=== PATIENT | female | born 1950 | race Caucasian/White ===

== ENCOUNTER 2020-12-06 05:43 | Day surgery (SDC) | payer MEDICARE ==
[~2020-12-06] VITALS: Ht 167.6 cm; Wt 67.3 kg
[~2020-12-06 05:43] MED LIST: APIX5TAB PO; ASPI-963 PO/NG; ATOR-2 PO; DIGO125T85 PO; DILT180C53 PO
[2020-12-06] MEDS ORDERED: FLEC50TA25 PO (06:21)
[2020-12-06 06:26] VITALS: BP 119/75
[2020-12-06 06:57] LABS: ANION GAP 5 mmol/L (5-15); CALCIUM 8.6 mg/dL (8.5-10.1); CHLORIDE 109 mmol/L (98-107); CREATININE 0.83 mg/dL (0.55-1.02)
[2020-12-06] MEDS ORDERED: PROPOFOL 10 MG/ML, 20ML ONE (07:28)
[2020-12-06] MEDS ORDERED: FLEC100T PO (07:51)
== END 2020-12-06 08:57 | disposition home or self-care (01) ==
LOC: CACL 05:43
PROVIDERS: ATTEND Internal Medicine Clinical Cardiac Electrophysiology
DX: I48.19 Other persistent atrial fibrillation (principal); E78.5 Hyperlipidemia, unspecified; Z79.82 Long term (current) use of aspirin; Z79.01 Long term (current) use of anticoagulants; Z79.899 Other long term (current) drug therapy; Z72.89 Other problems related to lifestyle
CPT/HCPCS: 36415; 80048; 92960; 93005; J2704

== ENCOUNTER 2021-04-30 14:15 | Outpatient (CLI) | payer MEDICARE ==
[~2021-04-30 14:15] MED LIST changes: +FLEC100T PO; +FLEC50TA25 PO
[2021-04-30] MEDS ORDERED: OMNIPAQUE 350 MG/ML, 150 ML BOTTLE ONE (16:06)
== END 2021-04-30 23:59 | disposition home or self-care (01) ==
LOC: CFH 14:15 → RAD 23:59
PROVIDERS: ATTEND Internal Medicine Clinical Cardiac Electrophysiology
DX: J98.4 Other disorders of lung (principal); J84.10 Pulmonary fibrosis, unspecified; I48.91 Unspecified atrial fibrillation; Z20.822 Contact with and (suspected) exposure to COVID-19
CPT/HCPCS: 71046; 75572; 82565; Q9967; U0003; U0005

== ENCOUNTER 2021-05-02 11:44 | Observation (INO) | payer MEDICARE ==
[~2021-05-02] VITALS: Ht 167.6 cm; Wt 66.8 kg
[~2021-05-02 11:44] MED LIST changes: +DEXAMETHASONE 4 MG/ML, 1ML ONE; +FENTANYL PF 100 MCG/2ML ONE; +LIDOCAINE-MPF 2% ,5ML ONE; +ONDANSETRON 2MG/ML, 2ML ONE; +PROPOFOL 10 MG/ML, 20ML ONE; +ROCURONIUM 10MG/ML,5ML ONE; +SUCCINYLCHOLINE 20 MG/ML, 10ML ONE; +SUGAMMADEX 200 MG/2 ML IVPush ONE
[2021-05-02] MEDS ORDERED: SODIUM CHLORIDE 0.9% 1,000 ML IV SCH (13:00)
[2021-05-02] MEDS ORDERED: Vitamin D3 PO (13:02)
[2021-05-02] MEDS ORDERED: MULT-658 PO (13:02)
[2021-05-02] MEDS ORDERED: FEXO1TAB29 PO (13:02)
[2021-05-02 13:09] VITALS: BP 97/63
[2021-05-02 13:23] LABS: BASOPHILS % (AUTO) 0 % (0-1); EOSINOPHILS % (AUTO) 2 % (1-7); LYMPHOCYTES % (AUTO) 28 % (22-44); MEAN CORPUSCULAR HEMOGLOBIN 29.2 pg (27.0-34.8); MEAN CORPUSCULAR HGB CONC 33.7 g/dL (32.4-35.8); MEAN PLATELET VOLUME 7.2 fL (7.4-10.4); MONOCYTES % (AUTO) 9 % (2-9); NEUTROPHILS % (AUTO) 61 % (42-75); PLATELET COUNT 355 x10^3/uL (130-400); RED CELL DISTRIBUTION WIDTH 14.1 % (9.6-15.2)
[2021-05-02 13:26] LABS: INTERNATIONAL NORMALIZED RATIO 1.04 (0.93-1.1); PROTHROMBIN TIME 11.1 Seconds (9.6-11.5)
[2021-05-02 13:28] LABS: ALANINE AMINOTRANSFERASE 121 U/L (12-78); ALBUMIN 3.1 g/dL (3.4-5.0); ANION GAP 7 mmol/L (5-15); CALCIUM 8.6 mg/dL (8.5-10.1); CHLORIDE 106 mmol/L (98-107)
[2021-05-02 13:30] LABS: ALKALINE PHOSPHATASE 217 U/L (45-117); BILIRUBIN,TOTAL 0.5 mg/dL (0.2-1.0); TOTAL PROTEIN 7.7 g/dL (6.4-8.2)
[2021-05-02] MEDS ORDERED: CEFTRIAXONE 1,000 MG in DEXTROSE 5% 50 ML IV ONE (13:30)
[2021-05-02] MEDS ORDERED: LIDOCAINE 1%, 20ML ONE (13:47)
[2021-05-02] MEDS ORDERED: PHENYLEPHRINE 10 MG/ML ONE ×2 (13:47→13:50)
[2021-05-02] MEDS ORDERED: SUGAMMADEX 200 MG/2 ML IVPush ONE (13:50)
[2021-05-02] MEDS ORDERED: HEPARIN 1,000 UNITS/ML, 10ML ONE ×2 (13:50→13:51)
[2021-05-02] MEDS ORDERED: ROCURONIUM 10MG/ML,5ML ONE (14:52)
[2021-05-02] MEDS ORDERED: LEVOFLOXACIN 500 MG TABLET PO SCH (16:30)
[2021-05-02] MEDS ORDERED: ZOLPIDEM 5MG TABLET PO PRN (16:30)
[2021-05-02] MEDS ORDERED: ONDANSETRON 2MG/ML, 2ML IVPush PRN (16:30)
[2021-05-02 19:04] VITALS: BP 110/70
[2021-05-02] MEDS: COLCHICINE 0.6 MG CAPSULE PO SCH (20:03)
[2021-05-02] MEDS: APIXABAN 5 MG TABLET PO SCH (20:03)
[2021-05-02] MEDS ORDERED: ATORVASTATIN 80 MG TABLET PO SCH (21:00)
[2021-05-02] MEDS: ACETAMINOPHEN 325 MG TABLET PO PRN (22:04)
[2021-05-03 01:05] VITALS: BP 114/73
[2021-05-03] MEDS: ACETAMINOPHEN 325 MG TABLET PO PRN (04:24)
[2021-05-03] MEDS ORDERED: PANTOPRAZOLE 20MG TABLET PO SCH (06:00)
[2021-05-03 07:10] VITALS: BP 117/67
[2021-05-03] MEDS: APIXABAN 5 MG TABLET PO SCH (08:24)
[2021-05-03] MEDS: COLCHICINE 0.6 MG CAPSULE PO SCH (08:24)
[2021-05-03] MEDS ORDERED: PANT20TA4 PO (09:00)
[2021-05-03] MEDS ORDERED: LEVO500T8 PO (09:00)
[2021-05-03] MEDS ORDERED: COLC0.6C3 PO (09:00)
== END 2021-05-03 11:53 | disposition home or self-care (01) ==
LOC: CACL 11:44 → 5SO 16:15
PROVIDERS: ADMIT Internal Medicine Clinical Cardiac Electrophysiology; ATTEND Internal Medicine Clinical Cardiac Electrophysiology
DX: I48.0 Paroxysmal atrial fibrillation (principal); I48.92 Unspecified atrial flutter; D68.69 Other thrombophilia; E78.5 Hyperlipidemia, unspecified; D72.829 Elevated white blood cell count, unspecified; F10.10 Alcohol abuse, uncomplicated; Z86.73 Personal history of transient ischemic attack (TIA), and cerebral infarction without residual deficits; Z79.899 Other long term (current) drug therapy
CPT/HCPCS: 36415; 80053; 85025; 85347; 85610; 93005; 93306; 93312; 93321; 93325; 93613; 93655; 93656; 93662; C1730; C1732; C1759; C1766; C1893; C1894; G0378; J0330; J1100; J1644; J2370; J2405; J2704; J3010; J3490